=== PATIENT | female | born 1960 | race American Indian/Alaskan Native ===

== ENCOUNTER 2016-07-17 15:03 | Emergency (ER) | payer SELFPAY ==
[2016-07-17 15:43] VITALS: BP 111/62
--- NOTE | 2016-07-20 21:20 | ED Elopement Review ---
ED Pt Elopement review - Results review Lab results: Laboratory Tests 07/17/16 15:43 POC Glucose 164 H - Call Back decision Pt Call Back Decision: No action required
== END 2016-07-17 16:15 | disposition left against medical advice (07) ==
LOC: ED 15:03
DX: R53.1 Weakness (principal); R20.0 Anesthesia of skin; M25.519 Pain in unspecified shoulder; Z53.21 Procedure and treatment not carried out due to patient leaving prior to being seen by health care provider
CPT/HCPCS: 82962